=== PATIENT | male | born 1950 | race Asian ===

== ENCOUNTER → 2018-03-08 | Outpatient (CLI) | payer MEDICARE, OTHER | END | disposition home or self-care (01) | LOC: RADMN 13:01 | PROVIDERS: ATTEND Physical Medicine & Rehabilitation Spinal Cord Injury Medicine | DX: M16.0 Bilateral primary osteoarthritis of hip (principal) | CPT/HCPCS: 72195 ==

== ENCOUNTER → 2019-07-12 | Outpatient (CLI) | payer MEDICARE, OTHER | END | disposition home or self-care (01) | LOC: RADMN 16:10 | PROVIDERS: ATTEND Internal Medicine | DX: R05 Cough (principal); I70.0 Atherosclerosis of aorta ==

== ENCOUNTER → 2022-04-01 | Outpatient (CLI) | payer MEDICARE, OTHER ==
[~2022-04-01] MED LIST: IOHEXOL 180 MG/ML 20 ML VIAL ONE; LIDOCAINE/PF 1% 30 ML VIAL ONE; TRIAMCINOLONE ACETONIDE 40 MG/ML VIAL IARTIC ONE; TRIAMCINOLONE ACETONIDE 40 MG/ML VIAL ONE
[2022-04-01 14:19] LABS: INR 0.9 (0.9-1.1); PROTHROMBIN TIME 10.1 SEC (9.4-11.6)
== END | disposition still patient (30) ==
LOC: RADMN 13:15
PROVIDERS: ATTEND Internal Medicine
DX: M25.552 Pain in left hip (principal); M25.551 Pain in right hip; M16.0 Bilateral primary osteoarthritis of hip; Z79.01 Long term (current) use of anticoagulants
CPT/HCPCS: 20610 ×2; 85610; 36415; 77002; J3490; J3301; Q9965; 27093; 73525; 76000